=== PATIENT | male | born 1975 | race African-American/Black ===

== ENCOUNTER 2017-10-22 21:44 | Emergency (ER) | payer OTHER ==
[2017-10-22] MEDS ORDERED: Ketorolac Tromethamine 60 MG/2 ML VIAL ONE (22:53)
== END 2017-10-22 23:14 | disposition home or self-care (01) ==
LOC: ERS 21:44
DX: G89.29 Other chronic pain (principal); M25.561 Pain in right knee; F31.9 Bipolar disorder, unspecified; F17.210 Nicotine dependence, cigarettes, uncomplicated
CPT/HCPCS: 96372; J1885

== ENCOUNTER 2019-06-08 23:04 | Emergency (ER) | payer OTHER | END 2019-06-09 00:02 | disposition home or self-care (01) | LOC: ERS 23:04 | DX: L03.312 Cellulitis of back [any part except buttock and flank] (principal); F17.210 Nicotine dependence, cigarettes, uncomplicated; F31.9 Bipolar disorder, unspecified | CPT/HCPCS: 99282 ==

== ENCOUNTER 2021-10-04 20:49 | Emergency (ER) | payer OTHER ==
[2021-10-05] MEDS ORDERED: HYDROcodone/Acetaminophen 5/325 mg Tablet ONE (00:23)
== END 2021-10-05 00:38 | disposition home or self-care (01) ==
LOC: ERS 20:49
DX: L02.212 Cutaneous abscess of back [any part, except buttock and flank] (principal); L03.312 Cellulitis of back [any part except buttock and flank]; F17.210 Nicotine dependence, cigarettes, uncomplicated
CPT/HCPCS: 10060